=== PATIENT | female | born 1995 | race Caucasian/White ===

== ENCOUNTER 2021-03-31 22:19 | Observation (INO) ==
[2021-03-31 22:34] VITALS: BMI 33.4
[2021-03-31] MEDS ORDERED: ZOFRAN INJ 4 MG VIAL IVP ONE (23:43)
[2021-03-31] MEDS ORDERED: TORADOL 30 MG VIAL IVP ONE (23:43)
--- NOTE | 2021-03-31 23:54 | ED.ABDFE ---
HPI Time Seen Time Seen by Provider: 03/31/21 23:38 PCP Primary Care Physician: CHERRI HPI Comment HPI Comment: A 26 y/o female presenting with parish-umbilical pain since about 1600 hrs. today. She described this as initially throbbing and intermittent but by 1830 hrs. it got to be constant and character became sharp and stabbing. She has associated nausea but without vomiting. She denies fever, recent travel or eating poorly cooked food items. The pain worsens with movement and there is no relieving factor(s). Complaint Chief Complaint:: PATIENT STATES SHE WAS HAVING MID ABDOMEN PAIN THAT FEELS LIKE IT GOES STRAIGHT THROUGH. PATIENT STATES SHE FEELS BLOATED AND NAUSEATED. STATES HER LBM WAS YESTERDAY AND WAS NORMAL PER PT. COVID-19 Coronavirus risk:travel/contact w/high risk person: No Has patient experienced Coronavirus symptoms: No Reviewed Nurses Notes Review: Yes Source History Provided: Patient Mode of arrival Mode of Arrival: Ambulatory Timing Onset of Chief Complaint: 03/31/21 PMH PMH Past Medical History: No Past Surgical History: No Surgical History: No History Family History History of Family Medical Conditions: No Social History Does patient currently use any type of tobacco product: No Have you used tobacco products in the last 12 months: No Type of Tobacco Use: None Do you use any recreational Drugs:: No Lives With: Spouse Lives Where: Home Travel Risk Coronavirus risk:travel/contact w/high risk person: No Has patient experienced Coronavirus symptoms: No Infectious screening Have you traveled outside the country in the last 6 months?: No Isolation: Standard ROS Review of Systems Constitutional: No Symptoms Reported Eyes: No Symptoms Reported ENTM: No Symptoms Reported Respiratoy: No Symptoms Reported Cardiovascular: No Symptoms Reported Gastrointestinal/Abdominal: Abdominal Pain and Nausea Genitourinary: No Symptoms Reported Neurological: No Symptoms Reported Musculoskeletal: No Symptoms Reported Integumentary: No Symptoms Reported Hematologic/Lymphatic: No Symptoms Reported Endocrine: No Symptoms Reported Psychiatric: No Symptoms Reported PE Vital Signs Vitals: Temperature 98.6 F Pulse Rate 98 Respiratory Rate 16 Blood Pressure 145/88 O2 Sat by Pulse Oximetry 97 General Limitations: No Limitations General Appearance: Alert Head Head Exam: Normal Inspection, Atraumatic and Normocephalic Eyes Eye exam: Normal Appearance and EOMI ENT ENT Exam: Normal Exam, Normal Oropharynx, Normal External Ear Exam and Mucous Membranes Moist Neck Neck Exam: Normal Inspection, Full ROM and Trachea Midline Chest Chest Inspection: Normal Inspection and Symmetric Chest Wall Rise Respiratory Respiratory Exam: Normal Lung Sounds Bilat Cardiovascular Cardiovascular Exam: Regular Rate, Normal Rhythm, Normal Heart Sounds, +S1 and +S2 Abdominal Exam Abdominal Exam: Normal Inspection, Normal Bowel Sounds, Soft and Tenderness; negative Distention, Guarding, Rebound, Rigidity, Dimnished Bowel Sounds, Hyperactive Bowel Sounds, Hypoactive Bowel Sounds, Organomegaly, Trauma, Incision, Ascites, Mass, Bruit, Pulsatile Mass and Hernia Abdominal Tenderness: Other (parish-umbilical. ) Rectal Rectal Exam: Deferred Back Back Exam: Normal Inspection and Full ROM Extremeties Extremities Exam: Normal Inspection and Full ROM External Exam: Female: Deferred Neurologic Neurological Exam: Alert and Oriented X3 Psychiatric Psychiatric Exam: Normal Affect and Normal Mood Skin Skin Exam: Dry and Intact COURSE Reevaluation 1st: Improved Consultation Consultation Comments: I spoke with Dr. Martínez at about 0330 hrs. today. After reviewing the presentation and findings with him, Dr. Nicole suggested admitting this pt. to his service with plan to go to OR later in the morning. I discussed the recommendation with the pt. and she is in agreement with the plan of treatment. Education/Counseling Education/Counseling: Patient, Education and Counseling Educated On: Treatment, Diagnosis, Prognosis and Needs for Follow Up ROR Labs Reviewed Laboratory Results Reviewed?: Yes Result Diagrams: 03/31/21 22:51 03/31/21 22:51 Laboratory: WBC 13.8 X10^3/uL (3.6-10.0) H 03/31/21 22:51 RBC 4.58 X10^6/uL (3.5-5.4) 03/31/21 22:51 Hgb 13.6 g/dL (12.0-16.0) 03/31/21 22:51 Hct 40.2 % (36.0-47.0) 03/31/21 22:51 MCV 87.7 fL (80.0-100.0) 03/31/21 22:51 MCH 29.8 pg (27.0-34.0) 03/31/21 22:51 MCHC 33.9 g/dL (33.0-35.0) 03/31/21 22:51 RDW 12.7 % (11.6-16.5) 03/31/21 22:51 Plt Count 251 X10^3/uL (150.0-450.0) 03/31/21 22:51 MPV 9.2 fL (7.4-11.0) 03/31/21 22:51 Neut % (Auto) 83.8 % (42.0-75.0) H 03/31/21 22:51 Lymph % (Auto) 9.8 % (21.0-51.0) L 03/31/21 22:51 [place] % (Auto) 5.2 % (0.0-13.0) 03/31/21 22:51 Eos % (Auto) 0.8 % (0.9-2.9) L 03/31/21 22:51 Baso % (Auto) 0.4 % (0.2-1.0) 03/31/21 22:51 Neut # (Auto) 11.6 x10^3/uL (2.2-4.8) H 03/31/21 22:51 Lymph # (Auto) 1.4 X10^3/uL (1.3-2.9) 03/31/21 22:51 [place] # (Auto) 0.7 x10^3/uL (0.3-0.8) 03/31/21 22:51 Eos # (Auto) 0.1 x10^3/uL (0.0-0.2) 03/31/21 22:51 Baso # (Auto) 0.1 X10^3/uL (0.0-0.1) 03/31/21 22:51 Absolute Nucleated RBC 0.0 /100WBC 03/31/21 22:51 Sodium 143 mmol/L (136-145) 03/31/21 22:51 Corrected Sodium 143 mmol/L (136-145) 03/31/21 22:51 Potassium 4.7 mmol/L (3.5-5.1) 03/31/21 22:51 Chloride 104 mmol/L (98-107) 03/31/21 22:51 Carbon Dioxide 31.2 mmol/L (21-32) 03/31/21 22:51 BUN 12 mg/dL (7-18) 03/31/21 22:51 Creatinine 0.83 mg/dL (0.55-1.02) 03/31/21 22:51 Est GFR (MDRD) Af Amer > 60 (>60) 03/31/21 22:51 Est GFR (MDRD) Non-Af > 60 (>60) 03/31/21 22:51 Glucose 116 mg/dL (65-99) H 03/31/21 22:51 Calcium 8.9 mg/dL (8.5-10.1) 03/31/21 22:51 Corrected Calcium TNP 03/31/21 22:51 Total Bilirubin 0.20 mg/dL (0.2-1.0) 03/31/21 22:51 AST 15 Units/L (15-37) 03/31/21 22:51 ALT 25 Units/L (12-78) 03/31/21 22:51 Alkaline Phosphatase 90 Units/L (46-116) 03/31/21 22:51 Total Protein 7.5 g/dL (6.4-8.2) 03/31/21 22:51 Albumin 3.9 g/dL (3.4-5.0) 03/31/21 22:51 Globulin 3.6 g/dL (2.5-4.5) 03/31/21 22:51 Albumin/Globulin Ratio 1.1 Ratio (1.1-2.1) 03/31/21 22:51 Specimen Type Clean catch urine 04/01/21 00:18 Urine Color Pale yellow (YELLOW) 04/01/21 00:18 Urine Appearance Clear (CLEAR) 04/01/21 00:18 Urine pH 7.0 (5.0 - 8.0) 04/01/21 00:18 Ur Specific [place] 1.015 (1.000-1.030) 04/01/21 00:18 Urine Protein Negative (NEGATIVE) 04/01/21 00:18 Urine Glucose (UA) Negative (NEGATIVE) 04/01/21 00:18 Urine Ketones Negative (NEGATIVE) 04/01/21 00:18 Urine Occult Blood Negative (NEGATIVE) 04/01/21 00:18 Urine Nitrite Negative (NEGATIVE) 04/01/21 00:18 Urine Bilirubin Negative (NEGATIVE) 04/01/21 00:18 Urine Urobilinogen Normal (NORMAL) 04/01/21 00:18 Ur Leukocyte Esterase Negative (NEGATIVE) 04/01/21 00:18 Opioid Opioid Risk Tool Age (Demetris box if 16-45): Yes Total: 1 Total Score Risk Category: Low Risk Copyright: Sander ROBERTS predicting aberrant behaviors Diagnosis Discharge Problem: Acute appendicitis Qualifiers: Acute appendicitis type: with localized peritonitis Appendicitis gangrene presence: without gangrene Appendicitis perforation presence: without perforation Appendicitis abscess presence: without abscess Qualified Code(s): K35.30 - Acute appendicitis with localized peritonitis, without perforation or gangrene Instructions Forms: Precautions for COVID19 Patient Portal Social Distancing ADDITIONAL NOTES Additional Notes Additional Notes: Name: Steve SHARMA#: [id number]: [id number] : 1995Sex: FLocation: ER Order Number(s): [id number](s):ABDOMEN/PELVIS WITH CON Ordering Physician: JULIAN COOPER Primary Care: NFD,None Service Date: 03/31/21 Service Time: 2343 STUDY: CT ABDOMEN AND PELVIS WITH IV CONTRAST COMPARISON: None TECHNIQUE: Axial images were acquired of the abdomen and pelvis with IV contrast. Sagittal and coronal reformatted images were provided. All images were reviewed in a variety of windows and levels. RADIATION REDUCTION TECHNIQUE: Automated exposure control, adjustment of the mA and/or kV according to patient size, or iterative reconstruction techniques were used. HISTORY: PT C/O MID ABD PAIN FINDINGS: LOWER THORAX: The visualized lower lung zones are clear. The heart size is within normal limits. There is no evidence of a pericardial effusion. LIVER: No intrahepatic focal lesions are seen. No evidence of intrahepatic or extrahepatic duct dilation. GALLBLADDER: The gallbladder is unremarkable. SPLEEN: The spleen enhances homogenously and is unremarkable. PANCREAS: The pancreas enhances homogenously and is unremarkable. AGRENAL GLANDS: The adrenal glands enhance homogenously and are unremarkable. : The kidneys enhance homogenously. Their collecting system is of normal caliber.Intrauterine contraceptive device is noted. The uterus is grossly unremarkable. The adnexal are partially visualized and appear grossly unremarkable. URINARY BLADDER: The urinary bladder is unremarkable. There are no soft tissue masses seen in the urinary bladder. VESSELS: The abdominal aorta is normal in size without evidence of aneurysm or dissection. The celiac artery, superior mesenteric artery, [place] renal arteries, and inferior mesenteric artery are patent. GI: The stomach and small bowel is unremarkable. The large bowel is unremarkable dilated inflamed appendix is seen measuring 10 mm consistent with acute appendicitis. There is no periappendiceal fluid collection to suggest abscess formation. The tip of the appendix is seen lying directly anterior to the S1 level. LYMPHNODES AND MESSENTERY: There is no evidence of retroperitoneal lymphadenopathy. BONES: The visualized bones are unremarkable. There are no concerning lytic or blastic lesions identified. IMPRESSION: Findings are consistent with acute appendicitis without evidence of abscess formation or appendiceal rupture. Electronically signed by: Daryl Adams (Apr 01, 2021 03:10:37) Report Electronically signed: 04/01/21 0312 CC: Julian Cooper
[2021-03-31] MEDS ORDERED: ZOFRAN INJ 4 MG VIAL ONE (23:55)
[2021-03-31] MEDS ORDERED: TORADOL 30 MG VIAL ONE (23:55)
[2021-03-31] MEDS ORDERED: NS 1000 ML 1,000 ML ONE (23:56)
[2021-04-01 00:05] LABS: BASOPHILS # (AUTO) 0.1 X10^3/uL (0.0-0.1); BASOPHILS % (AUTO) 0.4 % (0.2-1.0); EOSINOPHILS # (AUTO) 0.1 x10^3/uL (0.0-0.2); EOSINOPHILS % (AUTO) 0.8 % (0.9-2.9); HEMATOCRIT 40.2 % (36.0-47.0); HEMOGLOBIN 13.6 g/dL (12.0-16.0); LYMPHOCYTES # (AUTO) 1.4 X10^3/uL (1.3-2.9); LYMPHOCYTES % (AUTO) 9.8 % (21.0-51.0); MEAN CORPUSCULAR HEMOGLOBIN 29.8 pg (27.0-34.0); MEAN CORPUSCULAR HGB CONC 33.9 g/dL (33.0-35.0); MEAN CORPUSCULAR VOLUME 87.7 fL (80.0-100.0); MEAN PLATELET VOLUME 9.2 fL (7.4-11.0); MONOCYTES # (AUTO) 0.7 x10^3/uL (0.3-0.8); MONOCYTES % (AUTO) 5.2 % (0.0-13.0); NEUTROPHILS # (AUTO) 11.6 x10^3/uL (2.2-4.8); NEUTROPHILS % (AUTO) 83.8 % (42.0-75.0); PLATELET COUNT 251 X10^3/uL (150.0-450.0); RED BLOOD COUNT 4.58 X10^6/uL (3.5-5.4); RED CELL DISTRIBUTION WIDTH 12.7 % (11.6-16.5); WHITE BLOOD COUNT 13.8 X10^3/uL (3.6-10.0)
[2021-04-01 00:14] LABS: ALANINE AMINOTRANSFERASE 25 Units/L (12-78); ALBUMIN 3.9 g/dL (3.4-5.0); ALKALINE PHOSPHATASE 90 Units/L (46-116); ASPARTATE AMINO TRANSFERASE 15 Units/L (15-37); BLOOD UREA NITROGEN 12 mg/dL (7-18); CALCIUM 8.9 mg/dL (8.5-10.1); CARBON DIOXIDE 31.2 mmol/L (21-32); CHLORIDE 104 mmol/L (98-107); COR NA(FOR HYPERGLY) 143 mmol/L (136-145); CREATININE 0.83 mg/dL (0.55-1.02); SODIUM 143 mmol/L (136-145); TOTAL PROTEIN 7.5 g/dL (6.4-8.2); eGFR NON BLACK RACES > 60 (>60)
[2021-04-01] MEDS: NS 1000 ML 1,000 ML IV SCH ×2 (00:27→10:37)
[2021-04-01 00:37] LABS: BILIRUBIN,URINE NEGATIVE (NEGATIVE); BLOOD/HEMOGLOBIN,URINE NEGATIVE (NEGATIVE); GLUCOSE, URINE NEGATIVE (NEGATIVE); KETONES,URINE NEGATIVE (NEGATIVE); LEUKOCYTE ESTERASE ,URINE NEGATIVE (NEGATIVE); NITRITES,URINE NEGATIVE (NEGATIVE); PROTEIN,URINE NEGATIVE (NEGATIVE); UROBILINOGEN,URINE NORMAL (NORMAL)
[2021-04-01 00:51] LABS: APPEARANCE,URINE CLEAR (CLEAR); COLOR,URINE PALE YELLOW (YELLOW)
--- NOTE | 2021-04-01 03:12 | CT ---
STUDY: CT ABDOMEN AND PELVIS WITH IV CONTRASTCOMPARISON: NoneTECHNIQUE: Axial images were acquired of the abdomen and pelvis with IV contrast. Sagittal and coronal reformatted images were provided. All images were reviewed in a variety of windows and levels.RADIATION REDUCTION TECHNIQUE: Automated exposure control, adjustment of the mA and/or kV according to patient size, or iterative reconstruction techniques were used.HISTORY: PT C/O MID ABD PAINFINDINGS:LOWER THORAX: The visualized lower lung zones are clear. The heart size is within normal limits. There is no evidence of a pericardial effusion.LIVER: No intrahepatic focal lesions are seen. No evidence of intrahepatic or extrahepatic duct dilation.GALLBLADDER: The gallbladder is unremarkable.SPLEEN: The spleen enhances homogenously and is unremarkable.PANCREAS: The pancreas enhances homogenously and is unremarkable.AGRENAL GLANDS: The adrenal glands enhance homogenously and are unremarkable.: The kidneys enhance homogenously. Their collecting system is of normal caliber.Intrauterine contraceptive device is noted. The uterus is grossly unremarkable. The adnexal are partially visualized and appear grossly unremarkable.URINARY BLADDER: The urinary bladder is unremarkable. There are no soft tissue masses seen in the urinary bladder.VESSELS: The abdominal aorta is normal in size without evidence of aneurysm or dissection. The celiac artery, superior mesenteric artery, [place] renal arteries, and inferior mesenteric artery are patent.GI: The stomach and small bowel is unremarkable. The large bowel is unremarkable dilated inflamed appendix is seen measuring 10 mm consistent with acute appendicitis. There is no periappendiceal fluid collection to suggest abscess formation. The tip of the appendix is seen lying directly anterior to the S1 level.LYMPHNODES AND MESSENTERY: There is no evidence of retroperitoneal lymphadenopathy.BONES: The visualized bones are unremarkable. There are no concerning lytic or blastic lesions identified.IMPRESSION:Findings are consistent with acute appendicitis without evidence of abscess formation or appendiceal rupture.Electronically signed by: Daryl Adams (Apr 01, 2021 03:10:37)
[2021-04-01] MEDS ORDERED: ZOSYN VIAL 3.375 GRAMS 3.375 G in NS 100 ML IV + SPIKE MINIBAG* 100 ML IV ONE (03:28)
[2021-04-01] MEDS ORDERED: ZOSYN VIAL 3.375 GRAMS IV ONE (03:51)
[2021-04-01] MEDS ORDERED: NS 100 ML IV + SPIKE MINIBAG* 100 ML IV ONE (03:52)
[2021-04-01] MEDS ORDERED: ZOFRAN INJ 4 MG VIAL IVP PRN ×2 (05:18→14:32)
[2021-04-01] MEDS ORDERED: MORPHINE SULFATE INJ 2 MG INJ IVP PRN (05:18)
[2021-04-01] MEDS ORDERED: NS 1000 ML 1,000 ML IV SCH (05:18)
[2021-04-01] MEDS: ZOSYN VIAL 3.375 GRAMS 3.375 G in NS 100 ML IV + SPIKE MINIBAG* 100 ML IV SCH ×4 (05:22→22:25)
[2021-04-01 05:49] LABS: SERUM PREGNANCY TEST, QUAL NEGATIVE <10 mIU/mL
[2021-04-01] MEDS ORDERED: DILAUDID INJ IVP PRN ×3 (09:42→15:36)
[2021-04-01] MEDS ORDERED: D5 LR 1000 ML 1,000 ML IV ONE (13:19)
[2021-04-01] MEDS ORDERED: ANCEF 1 GRAM IV PREMIX* 2 G/100 ML BAG IV ONE (13:19)
[2021-04-01] MEDS ORDERED: FENTANYL INJ 250 mcg ONE (13:23)
[2021-04-01] MEDS ORDERED: BRIDION ONE (13:23)
[2021-04-01] MEDS ORDERED: LR 1000 ML IV 1,000 ML IV ONE (13:26)
[2021-04-01] MEDS ORDERED: ANCEF VIAL 1 GRAM IVP ONE (13:26)
[2021-04-01] MEDS ORDERED: NORCURON INJ 10 MG VIAL ONE (13:50)
[2021-04-01] MEDS ORDERED: QUELICIN (OR ANECTINE) ONE (13:50)
[2021-04-01] MEDS ORDERED: VERSED ONE (13:50)
[2021-04-01] MEDS ORDERED: SUPRANE ONE (13:50)
[2021-04-01] MEDS ORDERED: TORADOL 30 MG VIAL ONE (13:50)
[2021-04-01] MEDS ORDERED: ZOFRAN INJ 4 MG VIAL ONE (13:50)
[2021-04-01] MEDS ORDERED: DIPRIVAN VIAL ONE (13:50)
[2021-04-01] MEDS ORDERED: BACTROBAN TOPICAL OINT ONE (14:12)
[2021-04-01] MEDS ORDERED: REGLAN INJ 10 MG VIAL IVP PRN (14:32)
[2021-04-01] MEDS ORDERED: PHENERGAN INJ 25 MG IM PRN (14:32)
[2021-04-01] MEDS ORDERED: BARHEMSYS INJ IVP PRN (14:32)
[2021-04-01] MEDS ORDERED: BENADRYL INJ 50 MG VIAL IVP PRN (14:32)
[2021-04-01] MEDS: D5 1/2 NS 1000 ML 1,000 ML IV SCH (15:57)
[2021-04-02] MEDS: D5 1/2 NS 1000 ML 1,000 ML IV SCH ×2 (00:26→09:03)
[2021-04-02] MEDS: ZOSYN VIAL 3.375 GRAMS 3.375 G in NS 100 ML IV + SPIKE MINIBAG* 100 ML IV SCH (05:42)
[2021-04-02 06:35] LABS: ALANINE AMINOTRANSFERASE 27 Units/L (12-78); ALBUMIN 2.9 g/dL (3.4-5.0); ALKALINE PHOSPHATASE 72 Units/L (46-116); ASPARTATE AMINO TRANSFERASE 14 Units/L (15-37); BASOPHILS # (AUTO) 0.1 X10^3/uL (0.0-0.1); BASOPHILS % (AUTO) 0.8 % (0.2-1.0); BLOOD UREA NITROGEN 6 mg/dL (7-18); CALCIUM 7.9 mg/dL (8.5-10.1); CHLORIDE 107 mmol/L (98-107); COR CA(FOR HYPOALB) 8.8 mg/dL (8.5-10.1); COR NA(FOR HYPERGLY) 142 mmol/L (136-145); CREATININE 0.99 mg/dL (0.55-1.02); EOSINOPHILS # (AUTO) 0.1 x10^3/uL (0.0-0.2); EOSINOPHILS % (AUTO) 2.2 % (0.9-2.9); HEMOGLOBIN 11.6 g/dL (12.0-16.0); LYMPHOCYTES # (AUTO) 0.7 X10^3/uL (1.3-2.9); MEAN CORPUSCULAR HEMOGLOBIN 30.1 pg (27.0-34.0); MEAN CORPUSCULAR HGB CONC 34.2 g/dL (33.0-35.0); MEAN PLATELET VOLUME 9.6 fL (7.4-11.0); MONOCYTES # (AUTO) 0.5 x10^3/uL (0.3-0.8); MONOCYTES % (AUTO) 7.3 % (0.0-13.0); NEUTROPHILS # (AUTO) 5.2 x10^3/uL (2.2-4.8); NEUTROPHILS % (AUTO) 78.7 % (42.0-75.0); PLATELET COUNT 184 X10^3/uL (150.0-450.0); RED BLOOD COUNT 3.87 X10^6/uL (3.5-5.4); RED CELL DISTRIBUTION WIDTH 12.7 % (11.6-16.5); SODIUM 142 mmol/L (136-145); TOTAL PROTEIN 6.2 g/dL (6.4-8.2); WHITE BLOOD COUNT 6.6 X10^3/uL (3.6-10.0); eGFR NON BLACK RACES > 60 (>60)
[2021-04-02] MEDS ORDERED: MILK OF MAGNESIA PO SCH (09:00)
[2021-04-02 09:03] VITALS: BP 116/56
== END 2021-04-02 10:15 | disposition home or self-care (01) ==
LOC: SUPCPDRO → ER 22:22 → MED/SURG 22:22
PROVIDERS: ADMIT Surgery; ATTEND Surgery
PROC: APPYLAP (ICD-10-PCS; 2021-04-01 13:15)